=== PATIENT | male | born 1995 | race African-American/Black ===

== ENCOUNTER 2020-11-30 19:20 | Emergency (ER) | payer OTHER ==
[2020-11-30 19:43] VITALS: TEMP 98.1
[2020-11-30 21:18] LABS: Basophils % (A) 1 %; Eosinophils # (A) 0.1 k/uL (0-0.7); Eosinophils % (A) 3 %; HGB 16.8 gm/dL (13.0-17.5); Lymphocytes # (A) 2.4 k/uL (1.0-4.8); Lymphocytes % (A) 47 %; MCH 32.5 pg (25.0-35.0); MCV 92.8 fL (80.0-100.0); Mean Platelet Volume 8.9; Monocytes # (A) 0.4 k/uL (0-1.0); Monocytes % (A) 9 %; Neutrophils # (A) 1.9 k/uL (1.3-7.7); Neutrophils % (A) 37 %; Platelet Count 157 k/uL (150-450); RBC 5.17 m/uL (4.30-5.90); RDW 13.7 % (11.5-15.5); WBC 5.1 k/uL (3.8-10.6)
--- NOTE | 2020-11-30 21:28 | ED ---
Chest Pain HPI - General Chief Complaint: Chest Pain Stated Complaint: chest pain Time Seen by Provider: 11/30/20 21:02 Source: patient, police Mode of arrival: ambulatory Limitations: no limitations - History of Present Illness Initial Comments: The patient is a 25-year-old previously healthy male who presents to the emergency department from [facility] with reported chest pain. States that it started last night without any provocative factors. Denies any associated shortness of breath. No fevers, chills or cough. No previous history of cardiac disease. He did have a history of asthma as a child. Denies nausea or vomiting. Pain is mildly present at this time. He was given Motrin at the [facility] without improvement. Denies family history of sudden cardiac . No history of DVT or PE. No lower trauma swelling. No other alleviating, precipitating or modifying factors - Related Data Allergies Allergy/AdvReac Type Severity Reaction Status Date / Time No Known Allergies Allergy Verified 11/30/20 19:40 Review of Systems ROS Statement: Those systems with pertinent positive or pertinent negative responses have been documented in the HPI. ROS Other: All systems not noted in ROS Statement are negative. EKG Findings - EKG Comments: EKG Findings:: EKG demonstrates a sinus bradycardia with ventricular rate of 57. [place] interval 140. QRS 94. QTC 395. No acute ST segment elevations or depressions concerning for ischemic changes Past Medical History Past Medical History: Asthma History of Any Multi-Drug Resistant Organisms: None Reported Past Surgical History: Hernia Repair Past Psychological History: No Psychological Hx Reported Smoking Status: Never smoker Past Alcohol Use History: None Reported Past Drug Use History: None Reported General Exam Limitations: no limitations Course Vital Signs 11/30/20 11/30/20 19:40 22:12 Temperature 98.1 F Pulse Rate 50 L 88 Respiratory 18 16 Rate Blood Pressure 131/77 133/87 O2 Sat by Pulse 99 98 Oximetry Chest Pain MDM - MDM Upon arrival patient is placed in room 5. A thorough history and physical is performed symptoms performed. Laboratory studies are conducted and chest x-rays performed. Laboratory studies reveal a negative d-dimer and negative troponin. 12-lead EKG demonstrates no acute findings. Chest x-ray demonstrates no acute process. Results are discussed with the patient. Patient will be discharged home. Instructed to follow up with primary care doctor for echo and Holter monitoring. Return to the emergency department for any new or worsening symptoms. Patient is mildly bradycardic during his stay in the ER. I noted the patient is on metoprolol. He states he has been given this in the [facility] for his headaches only takes it when headaches are present. I informed him that propranolol is a more appropriate medication and was retaken daily for migraine prevention. This is placed on his discharge instructions for the [facility] nurse. Patient agreed to this and was discharged back to [facility] in stable condition Disposition Clinical Impression: Chest pain Disposition: HOME SELF-CARE Condition: Stable Instructions (If sedation given, give patient instructions): Chest Pain (ED) Additional Instructions: Please follow up with your primary care doctor and have an echo and Holter monitoring completed. I recommend stopping metoprolol and use propranolol only for headache prevention. Propranolol must be taken daily to prevent headaches, not just when you get them. Return to the ED for any new or worsening symptoms. Is patient prescribed a controlled substance at d/c from ED?: No Referrals: None,Stated [Primary Care Provider] - 1-2 days Time of Disposition: 22:08
[2020-11-30 21:30] LABS: ALT 37 U/L (4-49); AST 85 U/L (17-59); African American GFR (CKD) >90 (>60 ml/min/1.73 sqM); Albumin 4.5 g/dL (3.5-5.0); Alkaline Phosphatase 47 U/L (38-126); Anion Gap 10 mmol/L; Blood Urea Nitrogen 10 mg/dL (9-20); Calcium 9.4 mg/dL (8.4-10.2); Carbon Dioxide 25 mmol/L (22-30); Chloride 105 mmol/L (98-107); Glucose 86 mg/dL (74-99); Non-African American GFR(CKD) >90 (>60 ml/min/1.73 sqM); Sodium 140 mmol/L (137-145); Total Bilirubin 0.8 mg/dL (0.2-1.3); Total Protein 7.4 g/dL (6.3-8.2)
--- NOTE | 2020-11-30 21:41 | XR ---
EXAMINATION TYPE: XR chest 2V DATE OF EXAM: 11/30/2020 COMPARISON: NONE HISTORY: Cough. Chest pain TECHNIQUE: 2 views FINDINGS: Heart and mediastinum are normal. Lungs are clear. Diaphragm is normal. Bony thorax is inta ct. IMPRESSION: Normal chest.
[2020-11-30 21:51] LABS: INR 1.1 (<1.2); Partial Thromboplastin Time 25.4 sec (22.0-30.0); Prothrombin Time 11.5 sec (9.0-12.0)
[2020-11-30 22:13] VITALS: BP 133/87; PULSE 88; RESP 16
== END 2020-11-30 22:12 | disposition home or self-care (01) ==
LOC: EC 19:20
DX: R07.9 Chest pain, unspecified (principal); J45.909 Unspecified asthma, uncomplicated
CPT/HCPCS: 36415; 71046; 80053; 84484; 85025; 85379; 85610; 85730; 93005; 99285